=== PATIENT | female | born 1995 | race African-American/Black ===

== ENCOUNTER 2023-03-11 22:34 | Observation (INO) | payer BC ==
[~2023-03-11] VITALS: Ht 165.1 cm; Wt 73.5 kg
[2023-03-12 00:36] VITALS: BP 118/80; PULSE 70; RESP 18; TEMP 98.2
== END 2023-03-12 08:20 | disposition home or self-care (01) ==
LOC: MLD 22:34
PROVIDERS: ADMIT Obstetrics & Gynecology; ATTEND Obstetrics & Gynecology
DX: O99.891 Other specified diseases and conditions complicating pregnancy (principal); M54.9 Dorsalgia, unspecified; Z3A.38 38 weeks gestation of pregnancy
CPT/HCPCS: 76705; G0378; Q0092

== ENCOUNTER 2023-03-18 08:32 | Inpatient (IN) | payer BC ==
[~2023-03-18] VITALS: Ht 165.1 cm; Wt 73.5 kg
[2023-03-18] MEDS ORDERED: ONDANSETRON 4 MG/2 ML VIAL IVP PRN (10:25)
[2023-03-18] MEDS ORDERED: OXYTOCIN 20 UNITS in LACTATED RINGERS 1,000 ML IV SCH (10:25)
[2023-03-18] MEDS ORDERED: MORPHINE SULFATE 10 MG/ML VIAL IVP PRN (10:25)
[2023-03-18 10:57] LABS: BASOPHILS % (AUTO) 0.3 % (0.0-2.0); EOSINOPHILS % (AUTO) 0.3 % (0.0-4.0); HEMATOCRIT 30.3 % (36-48); HEMOGLOBIN 9.9 g/dL (12.0-16.0); LYMPHOCYTES # (AUTO) 2.3 K/uL (2.5-16.5); LYMPHOCYTES % (AUTO) 17.7 % (20.5-51.1); MEAN CORPUSCULAR HEMOGLOBIN 25 pg (27-31); MEAN CORPUSCULAR HGB CONC 33 g/dL (33-37); MEAN CORPUSCULAR VOLUME 76.5 fL (80-94); MONOCYTES # (AUTO) 1.5 K/uL (0.8-1.0); MONOCYTES % (AUTO) 11.1 % (1.7-9.3); NEUTROPHILS # (AUTO) 9.4 K/uL (1.8-7.7); NEUTROPHILS % (AUTO) 70.6 % (42.2-75.2); PLATELET COUNT (AUTO) 310 K/uL (140-450); RED BLOOD CELL COUNT(AUTO) 3.96 MIL/uL (4.20-5.40); RED CELL DISTRIBUTION WIDTH 15.2 % (11.6-13.7); WHITE BLOOD COUNT (AUTO) 13.3 K/uL (4.8-10.8)
[2023-03-18 11:08] LABS: APPEARANCE,URINE CLEAR (CLEAR); BILIRUBIN,URINE NEGATIVE (NEGATIVE); BLOOD, URINE NEGATIVE (NEGATIVE); COLOR,URINE YELLOW (YELLOW); LEUKOCYTE ESTERASE ,URINE NEGATIVE (NEGATIVE); NITRITE, URINE NEGATIVE (NEGATIVE); PH,URINE 6.5 (5.0-9.0); PROTEIN,URINE NEGATIVE (NEGATIVE); UGLUCOSE NEGATIVE (NEGATIVE); UROBILINOGEN,URINE 0.2 EU/dL (0.2 - 1)
[2023-03-18 11:19] LABS: ALBUMIN 2.3 g/dL (3.4-5.0); ANION GAP 11.5 (8-16); CALCIUM 8.4 mg/dL (8.5-10.1); CARBON DIOXIDE 23.1 mmol/L (21-32); CREATININE 0.5 mg/dL (0.6-1.3); POTASSIUM 3.6 mmol/L (3.5-5.1); TOTAL BILIRUBIN 0.6 mg/dL (0.0-1.0); TOTAL PROTEIN, SERUM 7.9 g/dL (6.4-8.2)
[2023-03-18 11:34] LABS: INR 0.88 (0.8-1.2); PARTIAL THROMBOPLASTIN TIME 25.2 secs (22-35.6); PROTHROMBIN TIME 9.3 secs (10.8-13.4)
[2023-03-18] MEDS ORDERED: MISOPROSTOL 25 MCG TAB VG SCH (12:00)
[2023-03-18] MEDS: LACTATED RINGERS 1,000 ML IV SCH ×2 (12:02→20:17)
[2023-03-18 13:41] VITALS: BP 120/70; PULSE 78; RESP 17; TEMP 98.7
[2023-03-18] MEDS ORDERED: CLINDAMYCIN 900 MG in DEXTROSE 5% 100 ML IV SCH (15:00)
[2023-03-18] MEDS ORDERED: CLINDAMYCIN 900 MG/6 ML VIAL IV ONE (20:35)
[2023-03-18] MEDS ORDERED: LIDOCAINE MPF 1% 10 MG/ML VIAL INJ SCH (20:55)
[2023-03-18] MEDS ORDERED: METHYLERGONOVINE 0.2 MG/ML AMP IM SCH (20:55)
[2023-03-18 22:11] VITALS: BP 126/80; PULSE 102; RESP 18
[2023-03-19] MEDS ORDERED: OXYTOCIN 20 UNITS/LR PREMIX 1,000 ML IV ONE (00:45)
[2023-03-19] MEDS ORDERED: IBUPROFEN 800 MG TAB PO PRN (01:10)
[2023-03-19] MEDS ORDERED: METHYLERGONOVINE 0.2 MG TAB PO PRN (01:10)
[2023-03-19] MEDS ORDERED: oxyCODONE/APAP 5/325 MG 1 TAB TAB PO PRN ×2 (01:10)
[2023-03-19] MEDS ORDERED: METHYLERGONOVINE 0.2 MG/ML AMP IM PRN (01:10)
[2023-03-19] MEDS ORDERED: BENZOCAINE/MENTHOL 20%-0.5% 60 GM CAN TP PRN (01:10)
[2023-03-19] MEDS ORDERED: TEMAZEPAM 15 MG CAP PO PRN (01:10)
[2023-03-19] MEDS ORDERED: DOCUSATE SOD/SENNA 50/8.6 MG 1 TAB PO SCH (21:00)
[2023-03-20 08:02] LABS: HEMOGLOBIN 9.7 g/dL (12.0-16.0)
== END 2023-03-20 13:40 | disposition home or self-care (01) | DRG 807 ==
LOC: MLD 08:32 → MFCC 03-19 03:05
PROVIDERS: ADMIT Obstetrics & Gynecology; ATTEND Obstetrics & Gynecology
PROC: 10E0XZZ Delivery of Products of Conception, External Approach (ICD-10-PCS; principal; 2023-03-19)
DX: O80 Encounter for full-term uncomplicated delivery (principal); Z37.0 Single live birth; Z20.822 Contact with and (suspected) exposure to COVID-19; Z3A.39 39 weeks gestation of pregnancy
CPT/HCPCS: 36415; 59200; 59409; 80053; 81003; 85018; 85025; 85610; 85730; 86592; 86886; 86900; 86901; 87653-90; J2270; J2405; J2590; J3490; J7060; J7120